=== PATIENT | female | born 1990 | race Caucasian/White ===

== ENCOUNTER 2019-12-29 16:53 | Emergency (ER) | payer MEDICAID ==
[~2019-12-29] VITALS: Ht 167.6 cm; Wt 81.6 kg
[2019-12-29] MEDS ORDERED: ONDA4TAB55 PO (16:59)
[2019-12-29] MEDS ORDERED: PRO40 PO (16:59)
[2019-12-29 17:00] VITALS: BP_SYST 134
--- NOTE | 2019-12-29 17:05 | NUR ---
PATIENT RETURNED TO WAITING ROOM PENDING BED ASSIGNMENT
--- NOTE | 2019-12-29 18:05 | NUR ---
PATIENT TO ER #7 AND PLACED ON [employer], SAO2 AND ABP
[2019-12-29] MEDS ORDERED: NACL 0.9% 1,000 ML IV ONE (18:09)
--- NOTE | 2019-12-29 18:10 | NUR ---
Patient presented to ER C/O abominal pain. Patient states she has abdominal pain & vomiting x3 months and was seen at [facility] ER yesterday, tx with gastric reflux medication. C/O N/V and abdominla pain 05/10
[2019-12-29] MEDS ORDERED: ONDANSETRON HCL 4 MG/2 ML VIAL IVP ONE (18:15)
[2019-12-29] MEDS ORDERED: MORPHINE 4 MG/ML INJ. SYRINGE IVP ONE (18:15)
--- NOTE | 2019-12-29 18:40 | NUR ---
radiology staff at bedside for portable x-ray.
[2019-12-29 18:50] LABS: BASOPHILS % (AUTO) 0.3 % (0.0-2.0); EOSINOPHILS % (AUTO) 0.1 % (0.0-4.0); HEMATOCRIT 38.3 % (36-48); LYMPHOCYTES # (AUTO) 1.1 K/uL (1.0-5.5); LYMPHOCYTES % (AUTO) 21.6 % (20.5-51.5); MEAN CORPUSCULAR HEMOGLOBIN 32 pg (27-31); MEAN CORPUSCULAR HGB CONC 34 % (32-36); MEAN CORPUSCULAR VOLUME 94 fL (79.0-98.0); MONOCYTES # (AUTO) 0.4 K/uL (0.0-1.0); MONOCYTES % (AUTO) 8.2 % (1.7-9.3); NEUTROPHILS # (AUTO) 3.6 K/uL (1.8-7.7); NEUTROPHILS % (AUTO) 69.8 % (40.0-70.0); PLATELET COUNT (AUTO) 219 K/uL (130-430); RED BLOOD CELL COUNT(AUTO) 4.07 MIL/uL (4.2-6.2); RED CELL DISTRIBUTION WIDTH 13.6 % (9.0-15.0); WHITE BLOOD COUNT (AUTO) 5.1 K/uL (4.8-10.8)
[2019-12-29 18:52] LABS: ANION GAP 13 (5-15); CALCIUM 9.1 mg/dL (8.4-11.0); CHLORIDE 101 mmol/L (98-107); CREATININE 0.91 mg/dL (0.55-1.30); GFR AFRICAN AMERICAN 95 mL/min (>90); GLUCOSE 106 mg/dL (70-99); POTASSIUM 3.3 mmol/L (3.5-5.1); SODIUM SERUM 136 mmol/L (136-145); UREA NITROGEN, BLOOD 10 mg/dL (8-21)
[2019-12-29 18:54] LABS: INR 1.2 (0.8-1.2); PROTHROMBIN TIME 12.1 SECS (9.5-12.5)
[2019-12-29 18:57] LABS: ALANINE AMINOTRANSFERASE 39 U/L (12-78); ALBUMIN 4.2 g/dL (3.4-4.8); AMYLASE 55 U/L (0-100); ASPARTATE AMINOTRANSFERASE 25 U/L (10-37); LIPASE 214 U/L (73-393); TOTAL BILIRUBIN 1.1 mg/dL (0.0-1.0)
--- NOTE | 2019-12-29 18:58 | NUR ---
[facility]
[2019-12-29 19:03] LABS: ACETAMINOPHEN < 1 ug/mL (1-30); ALCOHOL, BLOOD < 3 mg/dL (<10)
[2019-12-29 19:10] LABS: BLOOD, URINE NEGATIVE (NEGATIVE); CLARITY/URINE CLEAR (CLEAR); COLOR,URINE YELLOW (YELLOW); GLUCOSE,URINE NEGATIVE (NEGATIVE); KETONES,URINE 3+ (NEGATIVE); LEUKOCYTE ESTERASE ,URINE TRACE (NEGATIVE); NITRITE, URINE NEGATIVE (NEGATIVE); PH,URINE 8.5 (5.0-8.0); PROTEIN URINE NEGATIVE (NEGATIVE); UROBILINOGEN,URINE 0.2 (0.2-1.0)
[2019-12-29 19:17] LABS: BILIRUBIN,URINE NEGATIVE (NEGATIVE)
[2019-12-29 19:19] LABS: BACTERIA,URINE FEW /HPF (None Seen); MUCUS,URINE None Seen /LPF (None Seen); RBC,URINE 0-3 /HPF (0-3)
--- NOTE | 2019-12-29 19:19 | NUR ---
Report to Ferny VALLES
[2019-12-29 19:23] LABS: BARBITURATE, URINE NEGATIVE (NEG <=200); BENZODIAZEPINE, URINE NEGATIVE (NEG <=150); CANNABINOID, URINE POSITIVE (NEG <=50); COCAINE, URINE NEGATIVE (NEG <=150); METHAMPHETAMINES SCREEN,URINE NEGATIVE (NEG <=500); OPIATE, URINE NEGATIVE (NEG <=100); PHENCYCLIDINE SCREEN,URINE NEGATIVE (NEG <=25); UR TRICYCLIC ANTIDEPRESSANTS NEGATIVE (NEG <=300); URINE AMPHETAMINE NEGATIVE (NEG <=500); URINE METHADONE NEGATIVE (NEG <=200); URINE OXYCODONE SCREEN NEGATIVE (NEG <=100); URINE PROPOXYPHENE SCREEN NEGATIVE (NEG <=300)
[2019-12-29 20:35] VITALS: BP_SYST 104
--- NOTE | 2019-12-29 20:35 | NUR ---
Patient given written and verbal discharge instructions and verbalizes understanding. ER MD discussed with patient the results and treatment provided. Patient in stable condition. ID arm band removed. IV catheter removed intact and dressing applied, no active bleeding. Rx of Ativan, Pepcid given. Patient educated on pain management and to follow up with PMD. Pain Scale 3/10. Opportunity for questions provided and answered. Medication side effect fact sheet provided.
== END 2019-12-29 20:35 | disposition home or self-care (01) ==
LOC: SED 16:53
DX: G89.29 Other chronic pain (principal); K21.9 Gastro-esophageal reflux disease without esophagitis; R10.84 Generalized abdominal pain; R11.2 Nausea with vomiting, unspecified; R42 Dizziness and giddiness; F41.9 Anxiety disorder, unspecified; F12.90 Cannabis use, unspecified, uncomplicated
CPT/HCPCS: 36415; 71045; 74176; 80053; 80307; 81000; 81025; 82150; 83605; 83690; 84484; 85025; 85610; 85730; 87040; 96361; 96374; 96375; 99285; G0480; G0481; G0482; J2270; J2405; J7030